=== PATIENT | female | born 1975 | race Caucasian/White ===

== ENCOUNTER 2016-08-30 14:10 | Emergency (ER) | payer OTHER ==
[2016-08-30 14:20] VITALS: BP 128/74
--- NOTE | 2016-08-30 14:59 | UC ---
Ear Complaint HPI - HPI Summary HPI Summary: Mandy is having increased ear ' fullness" in the right ear, denies any other Upper Resp symptoms at this time. - History of Current Complaint Chief Complaint: UCEar Stated Complaint: EAR COMPLAINTS Time Seen by Provider: 08/30/16 14:35 Hx Obtained From: Patient Hx Last Menstrual Period: 12/03/14 ?: No Onset/Duration: Sudden Onset, Lasting Days Severity Initially: Mild Severity Currently: Moderate Aggravating Factors: Nothing Alleviating Factors: Heat Associated Signs/Symptoms: Positive: Hearing Loss - Allergies/Home Medications Allergies/Adverse Reactions: Allergies Allergy/AdvReac Type Severity Reaction Status Date / Time Azithromycin Allergy GI Upset Verified 08/30/16 14:20 PMH/Surg Hx/FS Hx/Imm Hx Previously Healthy: Yes Endocrine History Of: Denies: Diabetes, Thyroid Disease Cardiovascular History Of: Denies: Cardiac Disorders, Hypertension, Pacemaker/ICD, Congestive Heart Failure Respiratory History Of: Denies: COPD, Asthma GI/ History Of: Denies: Gastroesophageal Reflux, Ulcer, Renal Disease Neurological History Of: Denies: CVA, Dementia, Seizures Cancer History Of: Denies: Breast Cancer - Surgical History Surgical History: Yes Surgery Procedure, Year, and Place: 2 C-SECTIONS 1997 AND 2003 - Family History Known Family History: Positive: Hypertension - Social History Alcohol Use: Rare Substance Use Type: None Smoking Status (MU): Never Smoked Tobacco Review of Systems Constitutional: Negative Skin: Negative Eyes: Negative ENT: Ear Ache Respiratory: Negative Cardiovascular: Negative Gastrointestinal: Negative Genitourinary: Negative Motor: Negative Neurovascular: Negative Musculoskeletal: Negative Neurological: Negative Psychological: Negative All Other Systems Reviewed And Are Negative: Yes Physical Exam Triage Information Reviewed: Yes Appearance: Well-Appearing, Well-Nourished, Pain Distress Vital Signs: Initial Vital Signs Temp 97.6 F 08/30/16 14:15 Pulse 87 08/30/16 14:15 Resp 18 08/30/16 14:15 BP 128/74 08/30/16 14:15 Pulse Ox 98 08/30/16 14:15 Vital Signs Reviewed: Yes Eye Exam: Normal Eyes: Positive: Conjunctiva Clear ENT Exam: Normal ENT: Positive: Hearing grossly normal, Pharynx normal, TM bulging Dental Exam: Normal Neck exam: Normal Neck: Positive: Supple, Nontender, No Lymphadenopathy Respiratory Exam: Normal Respiratory: Positive: Chest non-tender, Lungs clear, Normal breath sounds Cardiovascular Exam: Normal Cardiovascular: Positive: RRR, No Murmur, Pulses Normal Abdominal Exam: Normal Abdomen Description: Positive: Nontender, No Organomegaly, Soft Bowel Sounds: Positive: Present Musculoskeletal Exam: Normal Musculoskeletal: Positive: Strength Intact, ROM Intact, No Edema Neurological Exam: Normal Neurological: Positive: Alert, Muscle Tone Normal Psychological Exam: Normal Skin Exam: Normal Ear Complaint Course/Dx - Course Course Of Treatment: hx obtained, exam performed, meds reviewed, educated on manual sinus drainage, refused prednisone and does not take decongestants due to anxiety. - Differential Dx/Diagnosis Differential Diagnosis/HQI/PQRI: Cerumen Impaction, Otitis Externa, Otitis Media Provider Diagnoses: serous otitis media right ear Discharge - Discharge Plan Condition: Stable Disposition: HOME Patient Education Materials: Serous Otitis Media (ED) Additional Instructions: 1. Increase fluid intake 2. Continue with warm compresses 3. Follow up with any increase in symptoms
== END 2016-08-30 15:05 | disposition home or self-care (01) ==
LOC: UCEAST 14:10
DX: H65.91 Unspecified nonsuppurative otitis media, right ear (principal); Z88.3 Allergy status to other anti-infective agents
CPT/HCPCS: 99211; G0463

== ENCOUNTER 2017-09-29 11:50 | Emergency (ER) | payer SELFPAY ==
[2017-09-29 12:05] VITALS: BP 128/77
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
[2017-09-29] MEDS ORDERED: Ibuprofen TAB* 600 MG PO ONE (13:33)
== END 2017-09-29 13:59 | disposition home or self-care (01) ==
LOC: UCEAST 11:50
DX: S16.1XXA Strain of muscle, fascia and tendon at neck level, initial encounter (principal); S09.90XA Unspecified injury of head, initial encounter; M50.323 Other cervical disc degeneration at C6-C7 level; F41.9 Anxiety disorder, unspecified; Z88.1 Allergy status to other antibiotic agents; W22.8XXA Striking against or struck by other objects, initial encounter; V49.88XA Car occupant (driver) (passenger) injured in other specified transport accidents, initial encounter; Y93.89 Activity, other specified; Y92.89 Other specified places as the place of occurrence of the external cause
CPT/HCPCS: 70450; 72125; 99212; A9270-GY; G0463

== ENCOUNTER 2017-11-20 17:39 | Emergency (ER) | payer OTHER ==
[2017-11-20] MEDS ORDERED: Ondansetron INJ* 2 MG/ML VIAL IV ONE (18:18)
[2017-11-20] MEDS ORDERED: Ketorolac INJ* 30 MG/ML 1 ML VIAL IV PUSH ONE (18:18)
--- NOTE | 2017-11-20 18:24 | UC ---
Headache HPI - HPI Summary HPI Summary: 3 DAYS OF DULL, ACHING FRONTAL HEADACHE AND POSTERIOR NECK PAIN. HAS ASSOCIATED NAUSEA AND DIZZINESS. TOOK 400 MG OF IBUPROFEN YESTERDAY WHICH DID NOT HELP. FEELS A LITTLE BETTER WHEN SHE LAYS DOWN. STATES SHE GETS TENSION HEADACHES AND HAS ANXIETY AND THESE SYMPTOMS FEEL SIMILAR TO HER NORMAL HEADACHES BUT THEY USUALLY DON'T LAST THIS LONG. SHE DENIES ANY HEAD TRAUMA OR RECENT INJURY. NO VISUAL DISTURBANCES. - History Of Current Complaint Chief Complaint: UCGeneralIllness Stated Complaint: HEADACHE,NASEOUS Time Seen by Provider: 11/20/17 17:57 Hx Obtained From: Patient Hx Last Menstrual Period: 11/12/17 Onset/Duration: Gradual Onset, Lasting Days, Still Present Initially Headache Was: Moderate Currently Pain Is: Moderate Pain Intensity: 8 Pain Scale Used: 0-10 Numeric Timing: Constant Character: Dull, Throbbing Location of Headache: Frontal Aggravating Factor(s): Nothing Allevating Factor(s): Nothing Associated Signs And Symptoms: Positive: Dizziness, Nausea, Neck Pain. Negative : Vomiting, Fever, Decreased LOC, Visual Changes - Allergies/Home Medications Allergies/Adverse Reactions: Allergies Allergy/AdvReac Type Severity Reaction Status Date / Time azithromycin [From Zithromax] Allergy Intermediate Nausea Verified 11/20/17 17: 49 Home Medications: Home Medications Ibuprofen TAB* [Motrin TAB* 600 MG] 400 mg PO Q6H PRN 11/20/17 [History] PMH/Surg Hx/FS Hx/Imm Hx Psychological History: Anxiety - Surgical History Surgical History: Yes Surgery Procedure, Year, and Place: 2 C-SECTIONS 1997 AND 2003 - Family History Known Family History: Positive: Hypertension - Social History Alcohol Use: Rare Substance Use Type: None Smoking Status (MU): Never Smoked Tobacco Review of Systems Respiratory: Negative Cardiovascular: Negative Gastrointestinal: Nausea Neurological: Headache All Other Systems Reviewed And Are Negative: Yes Physical Exam Triage Information Reviewed: Yes Appearance: Well-Appearing, No Pain Distress, Well-Nourished Vital Signs: Initial Vital Signs Temp 97.6 F 11/20/17 17:44 Pulse 89 11/20/17 17:44 Resp 16 11/20/17 17:44 BP 142/83 11/20/17 17:44 Pulse Ox 99 11/20/17 17:44 Vital Signs Reviewed: Yes Eyes: Positive: Conjunctiva Clear, Other: - PERRL, EOMI ENT: Positive: Hearing grossly normal, Pharynx normal, TMs normal Neck: Positive: Supple, Nontender, No Lymphadenopathy Respiratory Exam: Normal Cardiovascular Exam: Normal Abdomen Description: Positive: Soft Bowel Sounds: Positive: Present Musculoskeletal: Positive: No Edema Neurological: Positive: Alert Psychological: Positive: Age Appropriate Behavior Skin: Negative: rashes Re-Evaluation - Re-Evaluation First Eval Re-Evaluation Time: 19:40 - PAIN IS GOBE BUT PRESSURE INSIDE AND NAUSEA PERSIST. PT WOULD LIKE TO GO TO ED FOR FURTHER EVAL Change: Improved Headache Course/Dx - Course Course Of Treatment: PATIENT FEELS A BIT BETTER AFTER 1 L NORMAL SALINE, 30 MG TORADOL, 4 MG ZOFRAN HOWEVER STATES SHE STILL HAS SOME NAUSEA AND A SENSATION OF PRESSURE INSIDE HER HEAD. DISCUSSED OPTION OF PRESCRIPTIONS FOR PAIN AND NAUSEA AND DISCHARGE HOME WITH CLOSE FOLLOW-UP VERSUS FURTHER EVALUATION IN THE ED. PATIENT OPTS FOR ED EVAL. PT OFFERED TRANSPORT TO THE ED BY AMBULANCE BUT DECLINES. ADVISED THAT BY NOT TRAVELING IN A MONITORED SETTING SHE COULD BE RISKING WORSENING OF HER CONDITION THAT COULD POSE A THREAT TO HER LIFE, HEALTH AND MEDICAL SAFETY. SHE VERBALIZES UNDERSTANDING AND CONTINUES TO DECLINE AMBULANCE TRANSFER. - Differential Dx/Diagnosis Provider Diagnoses: HEADACHE AND NAUSEA Discharge - Sign-Out/Discharge Documenting (check all that apply): Patient Departure - Discharge Plan Condition: Stable Disposition: TRANS [facility]ARE FAC Patient Education Materials: General Headache (ED) Referrals: Tree Troncoso MD [Primary Care Provider] - If Needed Additional Instructions: AFTER 1 L OF NORMAL SALINE, 30 MG TORADOL, 4 MG ZOFRAN YOU HAVE PERSISTENT PRESSURE IN YOUR HEAD AND NAUSEA. GO DIRECTLY TO THE [facility] ED FROM HERE FOR FURTHER EVALUATION. YOU HAVE DECLINED TRANSFER TO THE ED BY AMBULANCE. BE ADVISED THAT BY NOT TRAVELING IN A MONITORED SETTING YOU COULD BE RISKING WORSENING OF YOUR CONDITION THAT COULD POSE A THREAT TO YOUR LIFE, HEALTH AND MEDICAL SAFETY. - Billing Disposition and Condition Condition: STABLE Disposition: Trans Higher l of Care Fac
[2017-11-20] MEDS ORDERED: NS 0.9% 1000 ML* 1,000 ML IV SCH (18:30)
[2017-11-20 19:41] VITALS: BP 130/81
== END 2017-11-20 19:50 | disposition short-term general hospital (02) ==
LOC: UCEAST 17:39
DX: R51 Headache (principal); R11.0 Nausea
CPT/HCPCS: 96360; 96374; 96375; 99212; G0463; J1885; J2405

== ENCOUNTER 2017-11-20 20:05 | Emergency (ER) | payer OTHER ==
--- NOTE | 2017-11-20 20:27 | ED ---
Headache - HPI Summary HPI Summary: This is scribe Mattfaizan Mahan documenting for attending Dr. Ramos Duvall MD. A 42 y/o female presents to ED c/o headache reaching 6/10 in severity. As per triage, "pt here with headache , pressure, to head,dizziness nausea x 4 days, denies injury, no travel. No vomiting,acting approp, no slurring of words, pt seen at [facility] [employer] [facility], pt received Toradol 30mg IV and nausea med". According to the patient, she has been experiencing pressure in her head coupled with nausea since Wednesday. She noted that she just feels "out of it" and there is pressure going on in head/ears. She denies any vomiting and blurred vision, however, has dizziness. Laying down alleviates symptoms. She noted that she was referred from who gave her fluids as she wanted scans. PMHx of Caesarean section, denies headache. SHx of no smoking, no ETOH, no drugs. Current medications include Advil for pain, however it has not alleviated the symptoms. - History Of Current Complaint Chief Complaint: EDHeadache Stated Complaint: DIZZINESS/HEADACHE/NAUSEA Time Seen by Provider: 11/20/17 20:15 Hx Obtained From: Patient Hx Last Menstrual Period: 11/12/17 Onset/Duration: Sudden Onset, Still Present Initially Headache Was: Moderate - 6/10 Currently Pain Is: Current Pain Scale(0-10)= - 6/10, Moderate - 6/10 Timing: Constant Character: Pressure Location of Headache: Frontal Aggravating Factor: Nothing Allevating Factors: Other (Noted In Comments) - Laying down. Associated Signs And Symptoms: Dizziness, Nausea - Allergies/Home Medications Allergies/Adverse Reactions: Allergies Allergy/AdvReac Type Severity Reaction Status Date / Time azithromycin [From Zithromax] Allergy Intermediate Nausea Verified 11/20/17 20: 08 PMH/Surg Hx/FS Hx/Imm Hx Endocrine/Hematology History: Denies: Hx Diabetes, Hx Thyroid Disease Cardiovascular History: Denies: Hx Congestive Heart Failure, Hx Hypertension, Hx Pacemaker/ICD Respiratory History: Denies: Hx Asthma, Hx Chronic Obstructive Pulmonary Disease (COPD) GI History: Denies: Hx Ulcer History: Denies: Hx Renal Disease Neurological History: Denies: Hx Dementia, Hx Seizures Psychiatric History: Denies: Hx Substance Abuse - Cancer History Hx Chemotherapy: No Hx Radiation Therapy: No - Surgical History Surgery Procedure, Year, and Place: 2 C-SECTIONS 1997 AND 2003 - Immunization History Date of Tetanus Vaccine: UNKNOWN Infectious Disease History: No Infectious Disease History: Denies: Hx Hepatitis, Hx Human Immunodeficiency Virus (HIV), Traveled Outside the [place] in Last 30 Days - Family History Known Family History: Positive: Hypertension - Social History Alcohol Use: Rare Substance Use Type: Reports: None Smoking Status (MU): Never Smoked Tobacco Review of Systems Negative: Fever Positive: Nausea. Negative: Vomiting Neurological: Other - POSITIVE: Dizziness Positive: Headache All Other Systems Reviewed And Are Negative: Yes Physical Exam - Summary Physical Exam Summary: VITAL SIGNS: Reviewed. GENERAL: Patient is a well-developed and nourished female who is lying comfortable in the stretcher. Patient is not in any acute respiratory distress. HEAD AND FACE: No signs of trauma. No ecchymosis, hematomas or skull depressions. No sinus tenderness. Frontal sinus pressure. EYES: PERRLA, EOMI x 2, No injected conjunctiva, no nystagmus. EARS: Hearing grossly intact. Ear canals and tympanic membranes are within normal limits. MOUTH: Oropharynx within normal limits. NECK: Supple, trachea is midline, no adenopathy, no JVD, no carotid bruit, no c- spine tenderness, neck with full ROM. CHEST: Symmetric, no tenderness at palpation LUNGS: Clear to auscultation bilaterally. No wheezing or crackles. CVS: Regular rate and rhythm, S1 and S2 present, no murmurs or gallops appreciated. ABDOMEN: Soft, non-tender. No signs of distention. No rebound no guarding, and no masses palpated. Bowel sounds are normal. EXTREMITIES: FROM in all major joints, no edema, no cyanosis or clubbing. NEURO: Alert and oriented x 3. No acute neurological deficits. Speech is normal and follows commands. SKIN: Dry and warm Triage Information Reviewed: Yes Vital Signs On Initial Exam: Initial Vitals Temp Pulse Resp BP Pulse Ox 98.1 F 95 16 137/90 98 11/20/17 20:09 11/20/17 20:11/20/17 20:11/20/17 20:11/20/17 20:09 Vital Signs Reviewed: Yes Diagnostics - Vital Signs Vital Signs Temp Pulse Resp BP Pulse Ox 11/20/17 20:09 98.1 F 95 16 137/90 98 - Laboratory Lab Statement: Any lab studies that have been ordered have been reviewed, and results considered in the medical decision making process. - CT BRAIN CT CT Interpretation Completed By: Radiologist - NO ACUTE INTRACRANIAL FINDINGS. ED PHYSICIAN REVIEWED THIS RADIOLOGY REPORT. Headache Course/Dx - Course Assessment/Plan: This patient is a 42-year-old female who presents to the emergency department with chief complaint of headache. Patient initially was seen in the urgent care for which the patient was given IV fluids and Toradol. The patient reports that she is spinning a little bit better however she came into the emergency room because she was told that she needs understands head CT since the patient has the worst headache of life. The patient seems to be comfortable. I discussed the benefits and risk of getting a head CT however the patient reports that his was the worst headache of her life and she usually doesnt have headaches. Head CT impression: No acute intracranial pathology. I order for the patient Tylenol, Benadryl, Reglan and fluticasone however the patient refused any of the medications. Therefore since the CT is negative the patient will be discharged home with follow-up with primary care physician. Before discharge the patient had a normal neurological exam. The patient ambulated out of the emergency department. - Diagnoses Provider Diagnoses: Headache Discharge - Sign-Out/Discharge Documenting (check all that apply): Patient Departure - DISCHARGE - Discharge Plan Condition: Stable Disposition: HOME Prescriptions: Metoclopramide TAB* [Reglan TAB*] 10 mg PO Q8H PRN #10 tab PRN Reason: Nausea Patient Education Materials: General Headache (ED) Referrals: Tree Troncoso MD [Primary Care Provider] - 1 Week Additional Instructions: FOLLOW UP WITH YOUR PRIMARY CARE PROVIDER WITHIN ONE WEEK FOR HIGH BLOOD PRESSURE NOTED TODAY. RETURN TO THE ED FOR ANY WORSENING OR NEW SYMPTOMS.
[2017-11-20] MEDS ORDERED: Metoclopramide TAB* 10 MG PO ONE (20:28)
[2017-11-20] MEDS ORDERED: diPHENhydraMINE PO* 25 MG PO ONE (20:28)
[2017-11-20] MEDS ORDERED: Acetaminophen TAB* 325 MG PO ONE (20:28)
[2017-11-20] MEDS ORDERED: Fluticasone NASAL SPRAY 50MCG* 16 gm SPRAY BTL BOTH NARES ONE (20:29)
--- NOTE | 2017-11-20 20:54 | RAD ---
INDICATION: Headaches COMPARISON: September 29, 2017 TECHNIQUE: Noncontrast axial source images were acquired from the skull base to the vertex. FINDINGS: Ventricles/sulci: The ventricles and cisterns are normal in size and configuration for age. Brain parenchyma: There is no focal parenchymal finding, evidence of intracranial mass, or intracranial mass effect. Intracranial hemorrhage:None. Extra-axial spaces: There are no abnormal extra axial fluid collections or evidence of extra-axial mass. Calvarium: There is no calvarial fracture or other calvarial abnormality. Scalp: There is no evidence of scalp or extracalvarial soft tissue abnormality. Paranasal sinuses/mastoid: The paranasal sinuses and mastoid air cells are clear. Other: None. IMPRESSION: NO ACUTE INTRACRANIAL FINDINGS.
[2017-11-20 21:58] VITALS: BP 134/86
== END 2017-11-20 21:58 | disposition home or self-care (01) ==
LOC: ED 20:05
DX: R51 Headache (principal); R42 Dizziness and giddiness; R11.0 Nausea
CPT/HCPCS: 70450; 99282; A9270-GY

== ENCOUNTER → 2018-06-11 15:16 | Emergency (ER) | payer OTHER ==
[~2018-06-11 15:16] MED LIST: NS 0.9% 1000 ML** 1,000 ML IV ONE
[2018-06-11 16:40] LABS: ABS Basophils 0 10^3/ul (0-0.2); ABS Eosinophils 0.1 10^3/ul (0-0.6); ABS Lymphocytes 1.7 10^3/ul (1.0-4.8); ABS Monocytes 0.6 10^3/ul (0-0.8); ABS Neutrophils 5.4 10^3/ul (1.5-7.7); ABS Nucleated RBC 0 10^3/ul; Eosinophil % 1.8 %; Hematocrit 35 % (35-47); Hemoglobin 11.7 g/dl (12.0-16.0); Lymphocyte % 21.9 %; Mean Corpuscular HGB Conc 33 g/dl (31-36); Mean Corpuscular Hemoglobin 26 pg (27-31); Mean Corpuscular Volume 77 fL (80-97); Mean Platelet Volume 7.3 fL (7.4-10.4); Nucleated Red Blood Cells % 0; Platelet Count 264 10^3/ul (150-450); Red Blood Count 4.55 10^6/ul (4.00-5.40); Red Cell Distribution Width 15 % (10.5-15); White Blood Count 7.9 10^3/ul (3.5-10.8)
[2018-06-11 16:48] LABS: Activated Partial Thrombo Time 29.6 seconds (26.0-36.3); INR 0.97 (0.77-1.02)
[2018-06-11 16:59] LABS: ALT 12 U/L (7-52); AST 14 U/L (13-39); Albumin 4.2 g/dL (3.2-5.2); Albumin/Globulin Ratio 1.3 (1-3); Alkaline Phosphatase 83 U/L (34-104); Anion Gap 6 mmol/L (2-11); BUN/Creatinine Ratio 15.6 (8-20); Blood Urea Nitrogen 10 mg/dL (6-24); CO2 Carbon Dioxide 29 mmol/L (22-32); Calcium 9.5 mg/dL (8.6-10.3); Chloride 104 mmol/L (101-111); Creatine Kinase 87 U/L (10-223); EGFR African American 122.5 (>60); EGFR Non-African American 101.3 (>60); Globulin 3.2 g/dL (2-4); Glucose 111 mg/dL (70-100); Magnesium 2.1 mg/dL (1.9-2.7); Potassium 3.9 mmol/L (3.5-5.0); Sodium 139 mmol/L (135-145); Total Protein 7.4 g/dL (6.4-8.9)
[2018-06-11 17:01] LABS: CKMB ng/mL 1.2 ng/mL (0.6-6.3)
--- NOTE | 2018-06-11 17:06 | ED ---
Palpitations / Dysrhythmia - HPI Summary HPI Summary: This patient is a 42 year old F presenting to [facility] accompanied by friend with a chief complaint of irregular palpitations that began prior to arrival. The patient rates the pain 0/10 in severity. Symptoms aggravated by nothing. Symptoms alleviated by nothing. Patient reports dizziness and fatigue. Patient denies CP and SOB. - History of Current Complaint Chief Complaint: EDDysrhythmPalp Time Seen by Provider: 06/11/18 16:52 Hx Obtained From: Patient Onset/Duration: Sudden Onset, Lasting Hours, Still Present Timing: Constant Severity Initially: Mild Severity Currently: Mild Character: Irregular Aggravating: Nothing Alleviating: Nothing Associated Signs & Symptoms: Dizzy - Allergy/Home Medications Allergies/Adverse Reactions: Allergies Allergy/AdvReac Type Severity Reaction Status Date / Time azithromycin [From Zithromax] Allergy Intermediate Nausea Verified 03/28/18 07: 54 PMH/Surg Hx/FS Hx/Imm Hx Previously Healthy: No Endocrine/Hematology History: Denies: Hx Diabetes, Hx Thyroid Disease Cardiovascular History: Denies: Hx Congestive Heart Failure, Hx Hypertension, Hx Pacemaker/ICD Respiratory History: Denies: Hx Asthma, Hx Chronic Obstructive Pulmonary Disease (COPD) GI History: Denies: Hx Ulcer History: Denies: Hx Renal Disease Neurological History: Denies: Hx Dementia, Hx Seizures Psychiatric History: Reports: Hx Anxiety Denies: Hx Substance Abuse - Cancer History Hx Chemotherapy: No Hx Radiation Therapy: No - Surgical History Surgery Procedure, Year, and Place: 2 C-SECTIONS 1997 AND 2003 - Immunization History Date of Tetanus Vaccine: UNKNOWN Infectious Disease History: No Infectious Disease History: Denies: Hx Hepatitis, Hx Human Immunodeficiency Virus (HIV), Traveled Outside the US in Last 30 Days - Family History Known Family History: Positive: Hypertension - Social History Occupation: Unemployed Lives: With Family Alcohol Use: None Hx Substance Use: No Substance Use Type: Reports: None Hx Tobacco Use: No Smoking Status (MU): Never Smoked Tobacco Have You Smoked in the Last Year: No Review of Systems Positive: Fatigue Positive: Palpitations. Negative: Chest Pain Negative: Shortness Of Breath Neurological: Other - Positive dizziness All Other Systems Reviewed And Are Negative: Yes Physical Exam - Summary Physical Exam Summary: GENERAL: Patient is a well-developed and nourished female who is lying comfortable in the stretcher. Patient is not in any acute respiratory distress. HEAD AND FACE: Normocephalic EYES: PERRLA, EOMI x 2. EARS: Hearing grossly intact. MOUTH: Oropharynx within normal limits. NECK: Supple, trachea is midline, no adenopathy, no JVD, no carotid bruit. CHEST: Symmetric, no tenderness at palpation LUNGS: Clear to auscultation bilaterally. No wheezing or crackles. CVS: Regular rate and rhythm, S1 and S2 present, no murmurs or gallops appreciated. ABDOMEN: Soft, non-tender. Bowel sounds are normal. No abdominal abnormal pulsations. EXTREMITIES: Full ROM in all major joints, no edema, no cyanosis or clubbing. NEURO: Alert and oriented x 3. No acute neurological deficits. Speech is normal and follows commands. SKIN: Dry and warm Triage Information Reviewed: Yes Vital Signs On Initial Exam: Initial Vitals Temp Pulse Resp BP Pulse Ox 98.5 F 99 14 134/88 98 06/11/18 15:23 06/11/18 15:23 06/11/18 15:23 06/11/18 15:23 06/11/18 15:23 Vital Signs Reviewed: Yes Diagnostics - Vital Signs Vital Signs Temp Pulse Resp BP Pulse Ox 06/11/18 15:23 98.5 F 99 14 134/88 98 - Laboratory Lab Results: Lab Results 06/11/18 06/11/18 06/11/18 Range/Units 16:33 16:33 16:33 WBC 7.9 (3.5-10.8) 10^3/ul RBC 4.55 (4.00-5.40) 10^6/ul Hgb 11.7 L (12.0-16.0) g/dl Hct 35 (35-47) % MCV 77 L (80-97) fL MCH 26 L (27-31) pg MCHC 33 (31-36) g/dl RDW 15 (10.5-15) % Plt Count 264 (150-450) 10^3/ul MPV 7.3 L (7.4-10.4) fL Neut % (Auto) 68.9 % Lymph % (Auto) 21.9 % Tift % (Auto) 7.0 % Eos % (Auto) 1.8 % Baso % (Auto) 0.4 % Absolute Neuts (auto) 5.4 (1.5-7.7) 10^3/ul Absolute Lymphs (auto) 1.7 (1.0-4.8) 10^3/ul Absolute Monos (auto) 0.6 (0-0.8) 10^3/ul Absolute Eos (auto) 0.1 (0-0.6) 10^3/ul Absolute Basos (auto) 0 (0-0.2) 10^3/ul Absolute Nucleated RBC 0 10^3/ul Nucleated RBC % 0 INR (Anticoag Therapy) 0.97 (0.77-1.02) APTT 29.6 (26.0-36.3) seconds D-Dimer, Quantitative < 200 (Less Than 230) ng/mL Sodium 139 (135-145) mmol/L Potassium 3.9 (3.5-5.0) mmol/L Chloride 104 (101-111) mmol/L Carbon Dioxide 29 (22-32) mmol/L Anion Gap 6 (2-11) mmol/L BUN 10 (6-24) mg/dL Creatinine 0.64 (0.51-0.95) mg/dL Est GFR ( Amer) 122.5 (>60) Est GFR (Non-Af Amer) 101.3 (>60) BUN/Creatinine Ratio 15.6 (8-20) Glucose 111 H (70-100) mg/dL Lactic Acid (0.5-2.0) mmol/L Calcium 9.5 (8.6-10.3) mg/dL Magnesium 2.1 (1.9-2.7) mg/dL Total Bilirubin 0.30 (0.2-1.0) mg/dL AST 14 (13-39) U/L ALT 12 (7-52) U/L Alkaline Phosphatase 83 (34-104) U/L Total Creatine Kinase 87 (10-223) U/L CK-MB (CK-2) Pending Troponin I 0.00 (<0.04) ng/mL Total Protein 7.4 (6.4-8.9) g/dL Albumin 4.2 (3.2-5.2) g/dL Globulin 3.2 (2-4) g/dL Albumin/Globulin Ratio 1.3 (1-3) TSH Pending 06/11/18 Range/Units 16:33 WBC (3.5-10.8) 10^3/ul RBC (4.00-5.40) 10^6/ul Hgb (12.0-16.0) g/dl Hct (35-47) % MCV (80-97) fL MCH (27-31) pg MCHC (31-36) g/dl RDW (10.5-15) % Plt Count (150-450) 10^3/ul MPV (7.4-10.4) fL Neut % (Auto) % Lymph % (Auto) % Tift % (Auto) % Eos % (Auto) % Baso % (Auto) % Absolute Neuts (auto) (1.5-7.7) 10^3/ul Absolute Lymphs (auto) (1.0-4.8) 10^3/ul Absolute Monos (auto) (0-0.8) 10^3/ul Absolute Eos (auto) (0-0.6) 10^3/ul Absolute Basos (auto) (0-0.2) 10^3/ul Absolute Nucleated RBC 10^3/ul Nucleated RBC % INR (Anticoag Therapy) (0.77-1.02) APTT (26.0-36.3) seconds D-Dimer, Quantitative (Less Than 230) ng/mL Sodium (135-145) mmol/L Potassium (3.5-5.0) mmol/L Chloride (101-111) mmol/L Carbon Dioxide (22-32) mmol/L Anion Gap (2-11) mmol/L BUN (6-24) mg/dL Creatinine (0.51-0.95) mg/dL Est GFR ( Amer) (>60) Est GFR (Non-Af Amer) (>60) BUN/Creatinine Ratio (8-20) Glucose (70-100) mg/dL Lactic Acid 1.0 (0.5-2.0) mmol/L Calcium (8.6-10.3) mg/dL Magnesium (1.9-2.7) mg/dL Total Bilirubin (0.2-1.0) mg/dL AST (13-39) U/L ALT (7-52) U/L Alkaline Phosphatase (34-104) U/L Total Creatine Kinase (10-223) U/L CK-MB (CK-2) Troponin I (<0.04) ng/mL Total Protein (6.4-8.9) g/dL Albumin (3.2-5.2) g/dL Globulin (2-4) g/dL Albumin/Globulin Ratio (1-3) TSH Result Diagrams: 06/11/18 16:33 06/11/18 16:33 Lab Statement: Any lab studies that have been ordered have been reviewed, and results considered in the medical decision making process. - Radiology CXR Radiology Interpretation Completed By: Radiologist Summary of Radiographic Findings: CXR reveals, per radiologist, no active cardiopulmonary disease. ED physician has reviewed this radiology report. - EKG 1527 Cardiac Rate: Tachycardia EKG Rhythm: Sinus Rhythm - 107 BPM Summary of EKG Findings: An EKG taken at 1527 reveals sinus tachycardia at 107 BPM with LAE. 1834 Cardiac Rate: Tachycardia EKG Rhythm: Sinus Rhythm - 101BPM Summary of EKG Findings: An EKG taken at 1834 reveals sinus tachycardia at 101 BPM. Course/Dx - Course Course Of Treatment: This patient is a 42 year old F presenting to [facility] accompanied by friend with a chief complaint of irregular palpitations that began prior to arrival. Physical Exam Findings: Nml. An EKG taken at 1527 reveals sinus tachycardia at 107 BPM with LAE. An EKG taken at 1834 reveals sinus tachycardia at 101 BPM. CXR reveals, per radiologist, no active cardiopulmonary disease. Bloodwork and urine obtained. In the ED course the patient was given fluids. Patient will be discharged with follow up from PCP and cardiology. The patient is agreeable with this plan. - Diagnoses Provider Diagnoses: Palpitations Discharge - Sign-Out/Discharge Documenting (check all that apply): Patient Departure - Discharge home Patient Received Moderate/Deep Sedation with Procedure: No - Discharge Plan Condition: Stable Disposition: HOME Patient Education Materials: Heart Palpitations (ED), Premature Atrial Contractions (ED) Referrals: Tree Troncoso MD [Primary Care Provider] - 2 Days Marcial Nieves MD [Medical Doctor] - 2 Days Additional Instructions: RETURN TO THE EMERGENCY DEPARTMENT FOR NEW OR WORSENING SYMPTOMS - Billing Disposition and Condition Condition: STABLE Disposition: Home - Attestation Statements Document Initiated by Scribe: Yes Documenting Scribe: Марина Infante Provider For Whom Scribe is Documenting (Include Credential): Dr. Imani Portillo MD Scribe Attestation: I, Марина Day, scribed for Dr. Imani Portillo MD on 06/13/18 at 1553. Scribe Documentation Reviewed: Yes Provider Attestation: The documentation as recorded by the scribe, Марина Infante accurately reflects the service I personally performed and the decisions made by me, Dr. Imani Portillo MD Status of Scribe Document: Viewed
[2018-06-11 17:42] LABS: Urine Appearance Clear; Urine Bacteria Absent (Absent); Urine Bilirubin Negative (Negative); Urine Blood 1+ (Negative); Urine Color Straw; Urine Glucose Negative (Negative); Urine Ketones Negative (Negative); Urine Nitrite Negative (Negative); Urine Protein Negative (Negative); Urine Red Blood Cell Absent (Absent); Urine Specific Gravity 1.009 (1.010-1.030); Urine Squamous Epithelial Cell Present (Absent); Urine Urobilinogen Negative (Negative); Urine White Blood Cell Absent (Absent)
[2018-06-11 17:47] LABS: TSH (Thyroid Stimulating Horm) 2.14 mcIU/mL (0.34-5.60)
[2018-06-11 18:23] LABS: HCG Pregnancy < 0.60 mIU/mL
[2018-06-11 19:29] VITALS: BP 117/66
== END | disposition home or self-care (01) ==
LOC: ED 15:16
DX: R00.2 Palpitations (principal); R42 Dizziness and giddiness; R53.83 Other fatigue
CPT/HCPCS: 36415; 71045; 80053; 81003; 81015; 82550; 82553; 83605; 83735; 83880; 84443; 84484; 84702; 85025; 85379; 85610; 85730; 93005; 96360; 99282

== ENCOUNTER 2018-06-13 13:09 | Emergency (ER) | payer OTHER ==
--- NOTE | 2018-06-13 13:43 | ED ---
Palpitations / Dysrhythmia - HPI Summary HPI Summary: Pt is a 42 y/o female who presents to the ED c/o palpitations. She was here 2 days ago for palpitations. Pt was told to follow up with cardiology, but was unable to make an appointment. She has continued to have constant palpitations for the past 2 days, described as irregular and fluttering. Pt has not been able to sleep due to the palpitations. She has had palpitations before, and notes that they seem to be worse when she is on her period, as she is currently. Pt also notes that she has been under recent stress, as a family member committed suicide. PMHx anxiety and panic attacks. She denies any alcohol or caffeine use. - History of Current Complaint Chief Complaint: EDDysrhythmPalp Time Seen by Provider: 06/13/18 13:33 Hx Obtained From: Patient Onset/Duration: Gradual Onset, Lasting Days - 2, Still Present Timing: Constant Character: Irregular, Fluttering Aggravating: Nothing Alleviating: Nothing Associated Signs & Symptoms: Negative Related History: Similar Episode/Dx as - hx of palpitations - Allergy/Home Medications Allergies/Adverse Reactions: Allergies Allergy/AdvReac Type Severity Reaction Status Date / Time azithromycin [From Zithromax] Allergy Intermediate Nausea Verified 03/28/18 07: 54 Home Medications: Home Medications Escitalopram (NF) [Lexapro 10 mg (NF)] 10 mg PO BID 06/13/18 [History Confirmed 06/13/18] PMH/Surg Hx/FS Hx/Imm Hx Endocrine/Hematology History: Denies: Hx Diabetes, Hx Thyroid Disease Cardiovascular History: Denies: Hx Congestive Heart Failure, Hx Hypertension, Hx Pacemaker/ICD Respiratory History: Denies: Hx Asthma, Hx Chronic Obstructive Pulmonary Disease (COPD) GI History: Denies: Hx Ulcer History: Denies: Hx Renal Disease Neurological History: Denies: Hx Dementia, Hx Seizures Psychiatric History: Reports: Hx Anxiety Denies: Hx Substance Abuse - Cancer History Hx Chemotherapy: No Hx Radiation Therapy: No - Surgical History Surgery Procedure, Year, and Place: 2 C-SECTIONS 1997 AND 2003 - Immunization History Date of Tetanus Vaccine: UNKNOWN Infectious Disease History: No Infectious Disease History: Denies: Hx Hepatitis, Hx Human Immunodeficiency Virus (HIV), Traveled Outside the [place] in Last 30 Days - Family History Known Family History: Positive: Cardiac Disease - Jjsuz-Rnhtmeypbn-Wwuls Syndrome, Hypertension - Social History Alcohol Use: None Hx Substance Use: No Substance Use Type: Reports: None Hx Tobacco Use: No Smoking Status (MU): Never Smoked Tobacco Have You Smoked in the Last Year: No Review of Systems Positive: Palpitations Positive: Anxious All Other Systems Reviewed And Are Negative: Yes Physical Exam - Summary Physical Exam Summary: Appearance: Well appearing, no pain distress Skin: warm, dry, reflects adequate perfusion Head/face: normal Eyes: EOMI, JEFFREY ENT: mucous membranes moist Neck: supple, non-tender Respiratory: CTA, breath sounds present Cardiovascular: sinus arrhythmia and PAC on the monitor, pulses symmetrical Abdomen: non-tender, soft Bowel Sounds: present Musculoskeletal: normal, strength/ROM intact Neuro: normal, sensory motor intact, A&Ox3 Triage Information Reviewed: Yes Vital Signs On Initial Exam: Initial Vitals Temp Pulse Resp BP Pulse Ox 99.3 F 92 16 173/109 97 06/13/18 13:12 06/13/18 13:12 06/13/18 13:12 06/13/18 13:12 06/13/18 13:12 Vital Signs Reviewed: Yes Diagnostics - Vital Signs Vital Signs Temp Pulse Resp BP Pulse Ox 06/13/18 13:12 99.3 F 92 16 173/109 97 - Laboratory Lab Statement: Any lab studies that have been ordered have been reviewed, and results considered in the medical decision making process. - EKG 13:15 Cardiac Rate: NL - 86 bpm EKG Rhythm: Sinus Rhythm ST Segment: Normal Ectopy: PACs Summary of EKG Findings: Nl axis Course/Dx - Course Course Of Treatment: Patient very regular on monitor with occasional PACs. This was seen on EKG also. Treated with beta gogo and additional dose of Ativan. She has been missing a lot of sleep due to bereavement as of late. She uses no significant amounts of caffeine, alcohol or boxt-oaf-jabkfju cough/ cold meds. Follow up with primary for Holter monitor and referral to cardiology. Started metoprolol here. - Diagnoses Differential Diagnosis/HQI/PQRI: Positive: Medication Induced, Panic Disorder, Paroxymal SVT, Pericarditis, V-Tach Provider Diagnoses: PAC (premature atrial contraction) Discharge - Sign-Out/Discharge Documenting (check all that apply): Patient Departure - Discharge Patient Received Moderate/Deep Sedation with Procedure: No - Discharge Plan Condition: Improved Disposition: HOME Prescriptions: Metoprolol Tartrate TAB* [Lopressor TAB*] 25 mg PO BID #60 tab Patient Education Materials: Premature Atrial Contractions (ED) Referrals: Marcial Nieves MD [Medical Doctor] - Tree Troncoso MD [Primary Care Provider] - Additional Instructions: Call your doctor today to schedule follow-up. They can set you up with a Holter monitor. Get plenty of sleep, hydrate well. Avoid alcohol, any stimulant medications or foods such as coffee/T. Return if worse, new symptoms or other concerns as discussed. - Billing Disposition and Condition Condition: IMPROVED Disposition: Home - Attestation Statements Document Initiated by Jacob: Yes Documenting Scribe: Elsi Pak Provider For Whom Jacob is Documenting (Include Credential): Renaldo Geronimo MD Scribe Attestation: Elsi Goodman, scribed for Renaldo Geronimo MD on 06/13/18 at 1538. Scribe Documentation Reviewed: Yes Provider Attestation: The documentation as recorded by the jasviribElsi henry accurately reflects the service I personally performed and the decisions made by me, Renaldo Geronimo MD Status of Scribe Document: Viewed
[2018-06-13] MEDS ORDERED: Metoprolol Tartrate TAB* 25 MG PO ONE (13:48)
[2018-06-13] MEDS ORDERED: LORazepam TAB(*) 1 MG PO ONE (13:48)
[2018-06-13 14:12] VITALS: BP 132/84
== END 2018-06-13 14:10 | disposition home or self-care (01) ==
LOC: ED 13:09
DX: I49.1 Atrial premature depolarization (principal); F41.0 Panic disorder [episodic paroxysmal anxiety]
CPT/HCPCS: 93005; 99283; A9270-GY

== ENCOUNTER 2019-03-13 08:58 | Emergency (ER) | payer OTHER ==
--- OUTSIDE RECORDS SUMMARY | 2019-03-13 09:09 | XMS REPORT | Continuity of Care Document ---
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 Hemorrhage of rectum and anus Dorota Segura PA-C Onset: 02/15/2019 Right lower quadrant pain Dorota Segura PA-C Onset: 02/15/2019 Anemia Dorota Segura PA-C Onset: 02/15/2019 Social History Type Date Description Comments Sex Unknown Tobacco Use Start: Unknown End: Unknown Patient is a former smoker Smoking Status Reviewed: 02/15/19 Patient is a former smoker Allergies, Adverse Reactions, Alerts Active Allergies Reaction Severity Comments Date Zithromax GI upset 02/02/2019 Inactive Allergies NKDA 05/06/2011 Medications Active Medications SIG Qnty Indications Ordering Date Provider Suprep Bowel Prep Kit as directed 1units K62.5 Barbara 02/15/2019 MD Beulah 17.5-3.13-1.6GM/177ML Solution Hyoscyamine Sulfate 1 tablet by mouth 90tabs R10.31 Barbara 02/15/2019 every four hours MD Beulah 0.125mg Tablets as needed for abdominal cramps/pain Escitalopram Oxalate Take 1 Tablet By 60tabs Mark, 10/25/2018 Mouth Twice Daily Stephany, [employer] 10mg Tablets Clonazepam 1 by mouth twice 60tabs Mark, 07/15/2018 0.5mg a day as needed FLOR Hammond Tablets for anxiety Meclizine HCL 1 by mouth 1 8h 30tabs R42 Wendy Chaidez, FLOR 11/24/2017 12.5mg during the day Tablets and 2-4po every night at bedtime Klonopin 1-2 by mouth 120tabs F41.9 Lyndsay Emery NP 10/16/2009 0.5mg Tablets twice a day as needed Metoprolol Tartrate Only With PVCS 180tabs Unknown 25mg Tablets Immunizations Description No Information Available Vital Signs Date Vital Result Comment 02/15/2019 10:00am Height 65 inches 5'5" Weight 246.00 lb BP Systolic 105 mmHg BP Diastolic 80 mmHg Heart Rate 83 /min BMI (Body Mass Index) 40.9 kg/m2 04/09/2015 10:01am Height 65 inches 5'5" Weight 237.00 lb BMI (Body Mass Index) 39.4 kg/m2 Results Description No Information Available Procedures Description No Information Available Medical Devices Description No Information Available Encounters Description No Information Available Assessments Date Code Description Provider 02/15/2019 D64.9 Anemia, unspecified Dorota Segura PA-C 02/15/2019 R10.31 Right lower quadrant pain Dorota Segura PA-C 02/15/2019 K62.5 Hemorrhage of anus and rectum Dorota Segura PA-C 02/15/2019 Z84.81 Family history of carrier of genetic Dorota Segura PA-C disease Plan of Treatment Future Appointment(s):03/22/2019 11:15 am - Barbara Riojas MD at [facility]02/15/2019 - MAGUI Arizmendi64.9 Anemia, rcnylunlmgbM48.31 Right lower quadrant painNew Medication:Hyoscyamine Sulfate 0.125 mg - 1 tablet by mouth every four hours as needed for abdominal cramps/painK62.5 Hemorrhage of anus and rectumNew Medication:Suprep Bowel Prep Kit 17.5-3.13-1.6 GM/177ML - as ecssaljmG05.81 Family history of carrier of genetic disease Functional Status Description No Information Available Mental Status Description No Information Available Referrals Description No Information Available
[2019-03-13] MEDS ORDERED: NS 0.9% 1000 ML** 1,000 ML IV ONE (09:30)
--- NOTE | 2019-03-13 09:31 | ED ---
Abdominal Pain/Female - HPI Summary HPI Summary: Patient is a 43 y/o F presenting to the ED for a chief complaint of intermittent RLQ abdominal pain for the last 2-3 months. Patient reports that the abdominal pain has worsened over the last few days and describes the pain as a sharp and aching pain. The abdominal pain radiates to the back and she rates the severity as 7/10. Patient admits nausea and is currently experiencing the abdominal pain. Patient denies vomiting, diarrhea, constipation, chest pain , or shortness of breath. She recently has a transvaginal ultrasound with unremarkable findings. She denies a PMHx of hypertension, hypercholesterolemia, diabetes mellitus, or ovarian problems. PSHx is significant for 2 C-sections. FMHx is significant for ovarian and breast cancer in her grandmothers. Patient recently had a BRCA gene test with a negative result. Patient states if the result was positive she would have a total mastectomy and hysterectomy. LNMP was 2 weeks ago. Patient denies tobacco, drug, or alcohol use. - History of Current Complaint Chief Complaint: EDAbdPain Stated Complaint: RT SIDE FLANK PAIN PER PT Time Seen by Provider: 03/13/19 09:14 Hx Obtained From: Patient Hx Last Menstrual Period: 11/12/17 Onset/Duration: Gradual Onset, Lasting Weeks, Still Present Timing: Weeks Severity Initially: Severe Severity Currently: Severe Pain Intensity: 7 Pain Scale Used: 0-10 Numeric Location: Discrete At: RLQ Radiates: Yes Radiates to: Back Character: Sharp, Other: - Aching Aggravating Factor(s): Nothing Alleviating Factor(s): Nothing Associated Signs and Symptoms: Positive: Nausea. Negative: Chest Pain, Constipation, Vomiting, Diarrhea, Other: - Negative shortness of breath Allergies/Adverse Reactions: Allergies Allergy/AdvReac Type Severity Reaction Status Date / Time azithromycin [From Zithromax] Allergy Intermediate Nausea Verified 03/13/19 09: 01 Home Medications: Home Medications Cyanocobalamin TAB* [Vitamin B12 TAB*] 500 mcg PO DAILY 03/13/19 [History Confirmed 03/13/19] Ferrous Sulfate TAB* 325 mg PO DAILY 03/13/19 [History Confirmed 03/13/19] Magnesium Oxide TAB* [MagOx 400 TAB*] 400 mg PO DAILY 03/13/19 [History Confirmed 03/13/19] Multivitamins/Minerals TAB* [Thera M Plus TAB*] 1 tab PO DAILY 03/13/19 [ History Confirmed 03/13/19] PMH/Surg Hx/FS Hx/Imm Hx Previously Healthy: Yes Endocrine/Hematology History: Denies: Hx Diabetes, Hx Thyroid Disease Cardiovascular History: Denies: Hx Congestive Heart Failure, Hx Hypercholesterolemia, Hx Hypertension , Hx Pacemaker/ICD Respiratory History: Denies: Hx Asthma, Hx Chronic Obstructive Pulmonary Disease (COPD) GI History: Denies: Hx Ulcer History: Denies: Hx Renal Disease Sensory History: Denies: Hx Legally Blind, Hx Deafness Opthamlomology History: Denies: Hx Legally Blind EENT History: Denies: Hx Deafness Neurological History: Denies: Hx Dementia, Hx Seizures Psychiatric History: Reports: Hx Anxiety Denies: Hx Substance Abuse - Cancer History Hx Chemotherapy: No Hx Radiation Therapy: No - Surgical History Surgical History: Yes Surgery Procedure, Year, and Place: 2 C-SECTIONS 1997 AND 2003 - Immunization History Date of Tetanus Vaccine: UNKNOWN Infectious Disease History: No Infectious Disease History: Denies: Hx Hepatitis, Hx Human Immunodeficiency Virus (HIV), Traveled Outside the [place] in Last 30 Days - Family History Known Family History: Positive: Cardiac Disease - Eheso-Psmfvbkkik-Rsqim Syndrome, Hypertension, Other - Ovarian and breast cancer - Social History Occupation: Employed Full-time Lives: With Family Alcohol Use: None Hx Substance Use: No Substance Use Type: Reports: None Hx Tobacco Use: No Smoking Status (MU): Never Smoked Tobacco Have You Smoked in the Last Year: No Review of Systems Negative: Chest Pain Negative: Shortness Of Breath Positive: Abdominal Pain - RLQ, Nausea, Other - Negative constipation. Negative : Vomiting, Diarrhea All Other Systems Reviewed And Are Negative: Yes Physical Exam - Summary Physical Exam Summary: VITAL SIGNS: Reviewed. GENERAL: Patient is a well-developed and nourished female who is lying comfortable in the stretcher. Patient is not in any acute respiratory distress. HEAD AND FACE: Normocephalic and atraumatic. EYES: PERRLA, EOMI x 2, No injected conjunctiva. EARS: Hearing grossly intact. Ear canals and tympanic membranes are WNL. MOUTH: Oropharynx within normal limits. NECK: Supple, trachea is midline, no adenopathy, no JVD. CHEST: Symmetric, no tenderness at palpation. LUNGS: Clear to auscultation bilaterally. No wheezing or crackles. CVS: RRR, S1 and S2 present, no murmurs or gallops appreciated. ABDOMEN: Soft. No signs of distention. Positive bowel sounds. No rebound, no guarding, and no masses palpated. No abdominal bruit or pulsations. RLQ tenderness. EXTREMITIES: FROM in all major joints, no edema, no cyanosis or clubbing. NEURO: Alert and oriented x 3. No acute neurological deficits. Speech is normal. SKIN: Dry and warm. Triage Information Reviewed: Yes Vital Signs On Initial Exam: Initial Vitals Temp Pulse Resp BP Pulse Ox 97.9 F 96 15 140/93 97 03/13/19 08:59 03/13/19 08:59 03/13/19 08:59 03/13/19 08:59 03/13/19 08:59 Vital Signs Reviewed: Yes Procedures - Sedation Patient Received Moderate/Deep Sedation with Procedure: No Diagnostics - Vital Signs Vital Signs Temp Pulse Resp BP Pulse Ox 03/13/19 08:59 97.9 F 96 15 140/93 97 - Laboratory Result Diagrams: 03/13/19 09:40 03/13/19 09:40 Lab Statement: Any lab studies that have been ordered have been reviewed, and results considered in the medical decision making process. - CT Abdomen/Pelvis CT CT Interpretation Completed By: Radiologist Summary of CT Findings: Abdomen/Pelvis CT IMPRESSION: 1. NO EVIDENCE FOR ACUTE FINDING. 2. HEPATOSPLENOMEGALY AND HEPATIC STEATOSIS, UNCHANGED. 3. CHOLELITHIASIS WITHOUT EVIDENCE FOR ACUTE CHOLECYSTITIS. 4. SMALL PERIUMBILICAL HERNIA CONTAINING FAT, UNCHANGED. 5. SMALL INVOLUTING LEFT FOLLICULAR CYST. Reviewed by Dr. Duvall. Abdominal Pain Fem Course/Dx - Course Course Of Treatment: Patient is a 43-year-old female who presents to the emergency department with a chief complaint of right upper quadrant pain. Blood work without any significant abnormality except for glucose 114 and the CRP is 11.6. The patient was given Toradol for the pain. Abdomen/Pelvis CT impression: No evidence for acute findings. The patient reports that she had a pelvic ultrasound done about 2 weeks ago and which was also negative for any pathology. 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 External genitalia: within normal limits. No rashes, lesions or ecchymosis. Speculum exam : vaginal bar with no lesions, masses, or rashes. Cervix normal. No CMTs. No adnexal masses. Since the patient denies discharge, patient declines any vaginal culture testing. At this time the patient is feeling better and does not have any complaints. I discussed all the findings and test results with the patient. Patient was instructed to return to the emergency room immediately if any of the symptoms return or worsen. Plan of care was discussed with the patient who understands and agrees. All questions were answered at the patient' s satisfaction. There were no further complaints or concerns. Lung exam before discharge: CTA B/L. Good air exchange. No wheezing or crackles heard. CVS: S1 and S2 present. No murmurs appreciated. Patient is alert and oriented x 3. Patient is hemodynamically stable. Patient will be discharged home and follow up PCP in the next 2-3 days. - Diagnoses Provider Diagnoses: Lower abdominal pain Discharge ED - Sign-Out/Discharge Documenting (check all that apply): Patient Departure - Discharge - Discharge Plan Condition: Stable Disposition: HOME Patient Education Materials: Abdominal Pain (ED) Referrals: Tree Troncoso MD [Primary Care Provider] - Additional Instructions: FOLLOW UP WITH YOUR PRIMARY CARE PROVIDER WITHIN 2-3 DAYS. RETURN TO THE ED FOR ANY WORSENING OR NEW SYMPTOMS. - Billing Disposition and Condition Condition: STABLE Disposition: Home - Attestation Statements Document Initiated by Jacob: Yes Documenting Giovanniibe: Yenifer Chacno Provider For Whom Jacob is Documenting (Include Credential): Ramos Duvall MD Scribe Attestation: Yenifer Goodman, scribed for Ramos Duvall MD on 03/13/19 at 1754. Scribe Documentation Reviewed: Yes Provider Attestation: The documentation as recorded by the Yenifer pierson accurately reflects the service I personally performed and the decisions made by me, Ramos Duvall MD Status of Scribcarl Document: Viewed
[2019-03-13 09:48] LABS: ABS Eosinophils 0.1 10^3/ul (0-0.6); ABS Lymphocytes 1.9 10^3/ul (1.0-4.8); ABS Monocytes 0.5 10^3/ul (0-0.8); ABS Neutrophils 3.5 10^3/ul (1.5-7.7); Eosinophil % 1.2 %; Hematocrit 38 % (35-47); Hemoglobin 12.9 g/dL (12.0-16.0); Mean Corpuscular HGB Conc 34 g/dL (31-36); Mean Corpuscular Hemoglobin 28 pg (27-31); Mean Corpuscular Volume 82 fL (80-97); Mean Platelet Volume 7.6 fL (7.4-10.4); Nucleated Red Blood Cells % 0.1; Platelet Count 248 10^3/uL (150-450); Red Cell Distribution Width 15 % (10-15)
[2019-03-13 10:09] LABS: ALT 10 U/L (7-52); AST 13 U/L (13-39); Albumin 4.4 g/dL (3.2-5.2); Albumin/Globulin Ratio 1.3 (1-3); Alkaline Phosphatase 93 U/L (34-104); Anion Gap 7 mmol/L (2-11); BUN/Creatinine Ratio 13.8 (8-20); Blood Urea Nitrogen 8 mg/dL (6-24); C Reactive Protein 11.62 mg/L (<8.01); CO2 Carbon Dioxide 24 mmol/L (22-32); Calcium 9.3 mg/dL (8.6-10.3); Chloride 105 mmol/L (101-111); EGFR African American 136.6 (>60); EGFR Non-African American 112.9 (>60); Globulin 3.3 g/dL (2-4); Glucose 114 mg/dL (70-100); Potassium 3.9 mmol/L (3.5-5.0); Sodium 136 mmol/L (135-145); Total Protein 7.7 g/dL (6.4-8.9)
[2019-03-13 10:10] LABS: Urine Appearance Clear; Urine Bilirubin Negative (Negative); Urine Blood Negative (Negative); Urine Color Straw; Urine Glucose Negative (Negative); Urine Ketones Negative (Negative); Urine Nitrite Negative (Negative); Urine Protein Negative (Negative); Urine Specific Gravity 1.005 (1.010-1.030); Urine Urobilinogen Negative (Negative)
[2019-03-13 10:15] LABS: HCG Pregnancy < 0.60 mIU/mL
[2019-03-13] MEDS ORDERED: Iohexol 300* (CONTRAST) 10 ML SDV IV ONE (11:19)
[2019-03-13] MEDS ORDERED: Ketorolac INJ* 30 MG/ML 1 ML VIAL IV PUSH ONE (12:36)
[2019-03-13 13:30] VITALS: BP 126/78
== END 2019-03-13 13:27 | disposition home or self-care (01) ==
LOC: ED 08:58
DX: R10.31 Right lower quadrant pain (principal); R11.0 Nausea; F41.9 Anxiety disorder, unspecified; Z79.899 Other long term (current) drug therapy
CPT/HCPCS: 36415; 74177; 80053; 81003; 83605; 83690; 84702; 85025; 86140; 99283; J1885; Q9967

== ENCOUNTER 2022-05-17 11:50 | Inpatient (IN) ==
[2022-05-17 13:07] LABS: ABS Eosinophils 0.1 10^3/ul (0-0.6); ABS Lymphocytes 1.9 10^3/ul (1.0-4.8); ABS Monocytes 0.5 10^3/ul (0-0.8); ABS Neutrophils 4.1 10^3/ul (1.5-7.7); Eosinophil % 0.9 %; Hematocrit 40 % (35-47); Hemoglobin 13.2 g/dL (12.0-16.0); Mean Corpuscular HGB Conc 33 g/dL (31-36); Mean Corpuscular Hemoglobin 27 pg (27-31); Mean Corpuscular Volume 80 fL (80-97); Mean Platelet Volume 7.7 fL (7.4-10.4); Platelet Count 306 10^3/uL (150-450); Red Blood Count 4.99 10^6 /uL (3.70-4.87); Red Cell Distribution Width 15 % (10-15); White Blood Count 6.6 10^3/uL (3.5-10.8)
[2022-05-17 13:13] LABS: Urine Appearance Clear; Urine Bilirubin Negative (Negative); Urine Blood 3+ (Negative); Urine Color Straw; Urine Glucose Negative (Negative); Urine Ketones Negative (Negative); Urine Nitrite Negative (Negative); Urine Protein Negative (Negative); Urine Specific Gravity 1.002 (1.002-1.030); Urine Urobilinogen Negative (Negative)
[2022-05-17 13:23] LABS: Urine Bacteria 1+ (Absent); Urine Red Blood Cell Trace(0-2/hpf) (Absent); Urine Squamous Epithelial Cell Present (Absent); Urine White Blood Cell Absent (Absent)
[2022-05-17 13:24] LABS: Urine Benzodiazepine Screen None Detected (None Detect); Urine Cannabinoids Screen None Detected (None Detect); Urine Opiates Screen None Detected (None Detect)
[2022-05-17 13:30] LABS: ALT 26 U/L (7-52); AST 18 U/L (13-39); Acetaminophen < 15 mcg/mL; Albumin 4.4 g/dL (3.2-5.2); Albumin/Globulin Ratio 1.4 (1-3); Alcohol, S < 13 mg/dL (<13); Alkaline Phosphatase 103 U/L (35-149); Anion Gap 8 mmol/L (2-11); Blood Urea Nitrogen 10 mg/dL (6-24); CO2 Carbon Dioxide 24 mmol/L (22-32); Calcium 9.2 mg/dL (8.6-10.3); Chloride 104 mmol/L (101-111); Creatinine, Serum 0.58 mg/dL (0.51-0.95); Globulin 3.2 g/dL (2-4); Glucose 133 mg/dL (70-100); Potassium 3.9 mmol/L (3.5-5.0); Salicylate < 2.50 mg/dL (<30); Sodium 136 mmol/L (135-145); Total Protein 7.6 g/dL (6.4-8.9); eGFR CKD-EPI 112.3 (>60)
[2022-05-17 13:44] LABS: TSH Ultra Thyroid Stim Horm 1.19 mcIU/mL (0.34-5.60)
[2022-05-17] MEDS ORDERED: Al Hydrox/Mg Hydrox/Simet LIQ 30 ML UDC PO PRN (14:57)
[2022-05-18] MEDS: Vitamin THERAPEUTIC TAB PO SCH (09:33)
[2022-05-19] MEDS: Vitamin THERAPEUTIC TAB PO SCH (08:26)
[2022-05-19 08:58] LABS: Cholesterol 172 mg/dL; HDL Cholesterol 33.2 mg/dL; LDL Cholesterol 104 mg/dL; Triglycerides 176 mg/dL
[2022-05-19 09:03] LABS: HCG Pregnancy < 0.60 mIU/mL
[2022-05-19] MEDS ORDERED: DESVENLAFAXINE 25 MG PO SCH (11:00)
[2022-05-19] MEDS: CMCS: Desvenlafaxine 50 mg TAB ER (NF) PO SCH (12:12)
[2022-05-20] MEDS: Vitamin THERAPEUTIC TAB PO SCH (08:38)
[2022-05-20] MEDS: CMCS: Desvenlafaxine 50 mg TAB ER (NF) PO SCH (11:54)
[2022-05-22 07:27] VITALS: BP 137/91
== END 2022-05-22 13:18 | disposition home or self-care (01) | DRG 756 ==
LOC: ED 11:50 → EDHOLD 14:37 → BSU 16:03
PROVIDERS: ADMIT Psychiatry & Neurology Psychiatry; ATTEND Psychiatry & Neurology Psychiatry